=== PATIENT | female | born 1995 | race American Indian/Alaskan Native ===

== ENCOUNTER 2020-07-01 20:23 | Emergency (ER) | payer SELFPAY ==
[2020-07-01 21:26] VITALS: BP 105/48
[2020-07-01] MEDS ORDERED: KETOROLAC 30 MG/1 ML INJ IV ONE (21:31)
[2020-07-01] MEDS ORDERED: SODIUM CHLORIDE 0.9% 1000 ML 1,000 ML IV ONE (21:31)
--- NOTE | 2020-07-01 21:31 | Emergency Department Report ---
ED Headache HPI - General Chief Complaint: Headache Stated Complaint: HEADACHES Time Seen by Provider: 07/01/20 21:30 Source: patient Exam Limitations: no limitations - History of Present Illness Initial Comments: 25-year-old female with no significant past history presents to the ER today with complaints of headache. Patient states that the headache started 4 days ago. She states that it was constant for the past 3 days but today has been mainly intermittent. She states that the headache is mainly the left side of her head and sometimes it is occipital and sometimes goes into her jaw. She denies any head injury. She states that she took Tylenol today without any relief of her headache. She reports photosensitivity. She denies any nausea, vomiting, URI symptoms or cough, vision changes, neck pain, fever or chills. She also denies any focal weakness, numbness, tingling, dizziness or any speech changes. Timing/Duration: other (4 days ) Quality: pressure (Headache currently 7 out of 10) Head Injury Location: frontal (Left frontal), occipital (Sometimes occipital), parietal (Left parotid) Recent Head Trauma: no recent headache/trauma Modifying Factors: improves with: exposure to light Associated Symptoms: denies symptoms. denies: confusion, fatigue, facial pain, fever/chills, flushing, loss of consciousness, nausea/vomiting, nasal congestion, nasal drainage, numbness in legs/feet, rash, seizures, sinus infection, stiff neck, vision changes, weakness, other Allergies/Adverse Reactions: Allergies No Known Allergies Allergy (Unverified 07/01/20 21:30) Home Medications: Ambulatory Orders Amoxicillin [Trimox CAP] 500 mg PO Q8H #30 capsule 07/01/20 Butalb/Acetaminophen/Caffeine [Fioricet 50-300-40 mg CAP] 1 cap PO Q6HR PRN #12 cap 07/01/20 Cetirizine HCl [Zyrtec 10mg tab] 10 mg PO DAILY #30 tablet 07/01/20 ED Review of Systems ROS: Stated complaint: HEADACHES Other details as noted in HPI Comment: All other systems reviewed and negative Constitutional: denies: chills, fever Eyes: denies: eye pain, eye discharge, vision change ENT: denies: ear pain, throat pain, dental pain, hearing loss, congestion Respiratory: denies: cough, shortness of breath, SOB with exertion, SOB at rest, wheezing Cardiovascular: denies: chest pain, palpitations Gastrointestinal: denies: abdominal pain, nausea, vomiting, diarrhea, constipat ion, hematemesis, melena, hematochezia Genitourinary: denies: urgency, dysuria, discharge Skin: denies: rash, lesions, change in color, change in hair/nails, pruritus Neurological: headache. denies: weakness, numbness, paresthesias, confusion, abnormal gait Psychiatric: denies: anxiety, depression, auditory hallucinations, visual hallucinations, homicidal thoughts, suicidal thoughts Hematological/Lymphatic: denies: easy bleeding, easy bruising ED Past Medical Hx - Past Medical History Previous Medical History?: No - Surgical History Past Surgical History?: No - Social History Smoking Status: Never Smoker Substance Use Type: None - Medications Home Medications: Home Medications Medication Instructions Recorded Confirmed Last Taken Type Amoxicillin [Trimox CAP] 500 mg PO Q8H #30 capsule 07/01/20 Unknown Rx Butalb/Acetaminophen/Caffeine 1 cap PO Q6HR PRN #12 cap 07/01/20 Unknown Rx [Fioricet 50-300-40 mg CAP] Cetirizine HCl [Zyrtec 10mg tab] 10 mg PO DAILY #30 tablet 07/01/20 Unknown Rx ED Physical Exam - General Limitations: No Limitations General appearance: alert, in no apparent distress - Head Head exam: Present: atraumatic, normocephalic, normal inspection - Eye Eye exam: Present: normal appearance, PERRL, EOMI Pupils: Present: normal accommodation - ENT ENT exam: Present: normal exam, mucous membranes moist, other (Bilateral maxillary sinus tenderness. Left frontal sinus tenderness.) - Expanded ENT Exam Expanded TM/Canal exam: Effusion: Right TM, Left TM - Neck Neck exam: Present: normal inspection, full ROM. Absent: meningismus - Respiratory Respiratory exam: Present: normal lung sounds bilaterally. Absent: respiratory distress - Cardiovascular Cardiovascular Exam: Present: regular rate, normal rhythm, normal heart sounds - GI/Abdominal GI/Abdominal exam: Present: soft. Absent: distended, tenderness, guarding - Neurological Exam Neurological exam: Present: alert, oriented X3, CN II-XII intact, normal gait. Absent: motor sensory deficit - Psychiatric Psychiatric exam: Present: normal affect, normal mood - Skin Skin exam: Present: intact ED Course Vital Signs 07/01/20 07/01/20 21:20 21:25 Temperature 98.3 F Pulse Rate 80 Respiratory 18 Rate Blood Pressure 105/48 [Left] O2 Sat by Pulse 100 Oximetry ED Medical Decision Making - Medical Decision Making 2222: Patient currently resting comfortably, talking and playing on her phone, and does not appear to be in any acute distress. Headache improved after meds and fluids.. She is awake alert oriented x3 and neurologically intact with a normal gait in the ER. She is not toxic or ill-appearing. Her vital signs have been stable. Discussed suspected diagnosis and treatment plan with patient. The history, exam, and the patient's current condition does not suggest meningitis, stroke, sepsis, subarachnoid hemorrhage, intracranial bleeding, encephalitis, temporal arteritis or other significant pathology to warrant further testing, continued ED treatment, admission, neurological consultation or other specialist evaluation at this point. Patient expressed understanding of instructions and agree with plan. Patient was stable at time of discharge. Critical care attestation.: If time is entered above; I have spent that time in minutes in the direct care of this critically ill patient, excluding procedure time. ED Disposition Clinical Impression: Headache, Sinusitis Disposition: DC-01 TO HOME OR SELFCARE Is pt being admited?: No Does the pt Need Aspirin: No Condition: Stable Instructions: General Headache Without Cause, Sinusitis, Adult Additional Instructions: Take the medications as prescribed. Drink lots of water. Follow up with your PCP in 1 week. Return to ED if symptoms changes or worsens in any way. Prescriptions: Butalb/Acetaminophen/Caffeine [Fioricet 50-300-40 mg CAP] 1 cap PO Q6HR PRN #12 cap PRN Reason: Headache Amoxicillin [Trimox CAP] 500 mg PO Q8H #30 capsule Cetirizine HCl [Zyrtec 10mg tab] 10 mg PO DAILY #30 tablet Referrals: RASHAD PONCE MD [Staff Physician] - 3-5 Days Forms: Work/School Release Form(ED) Time of Disposition: 22:36
[2020-07-01] MEDS ORDERED: dexAMETHasone 20 MG in SODIUM CHLORIDE 0.9% 50 ML IV ONE ×2 (22:15→22:40)
[2020-07-01] MEDS ORDERED: dexAMETHasone 20 MG/5 ML VIAL IV ONE (22:35)
== END 2020-07-01 23:30 | disposition home or self-care (01) ==
LOC: ED 20:23
DX: J32.9 Chronic sinusitis, unspecified (principal); Z79.899 Other long term (current) drug therapy
CPT/HCPCS: 96365; 96375; 99282; J1100; J1885; J7030